=== PATIENT | male | born 1990 | race Caucasian/White ===

== ENCOUNTER 2021-02-28 00:51 | Emergency (ER) | payer OTHER ==
[~2021-02-28] VITALS: Ht 162.6 cm; Wt 54.4 kg
[2021-02-28] MEDS ORDERED: MEDROLDOSEPACK PO (01:38)
[2021-02-28 01:46] VITALS: BP 120/69
== END 2021-02-28 01:46 | disposition home or self-care (01) ==
LOC: M.ERS 00:51
DX: R20.2 Paresthesia of skin (principal); V89.2XXA Person injured in unspecified motor-vehicle accident, traffic, initial encounter; Y93.89 Activity, other specified; Y92.89 Other specified places as the place of occurrence of the external cause; Y99.8 Other external cause status